=== PATIENT | female | born 1955 | race Hispanic/Latino ===

== ENCOUNTER → 2017-03-29 | Outpatient (CLI) | payer OTHER ==
[~2017-03-29] MED LIST: ALLERGY PILL PO; CATHETER FLUSH 10 ML SYR IV PRN; GUAI100S PO; IOHEXOL 350 MG/ML 100 ML (OMNIPAQUE 350) VIAL IV ONE; NS 100 ML (IVPB) BAG IV ONE; PRED20TA PO
--- NOTE | 2017-03-29 12:53 | Diagnostic Imaging Report ---
PROCEDURE: CT angiography of the head and CT angiography of the neck with and without contrast. TECHNIQUE: Contiguous noncontrast images were obtained from the skull base through the vertex. After intravenous contrast administration, helical CT angiography of the neck was performed. Source data was reformatted into multiple MIP projections. Delayed post contrast acquisition was also obtained. INDICATION: During workup for throbbing right-sided temporal head pain, a pre-and postcontrast enhanced routine head CT revealed an abnormal area of somewhat saccular hyperenhancement near the supraclinoid right ICA. This study is performed as further evaluation. FINDINGS: CT angio neck: The aortic arch in the branching pattern of the great vessels was normal. The bilateral cervical vertebral arteries are codominant and widely patent and nonfocal. The bilateral common and internal and major external carotid arterial branches in the neck appeared normal. CT angiography head: This examination confirms suspicions raised on earlier routine postcontrast enhanced head CT. Oriented inferolaterally, off the takeoff of the posterior communicating artery, is an aneurysm measuring long axis roughly of about 4 mm and maximal transverse dimension of 3.1 mm. No obvious intra-aneurysmal luminal thrombus was found. We again note no findings of subarachnoid or other intracranial blood products on nonenhanced head CT. The right posterior cerebral artery is of origin fed by the PCOM, the left LEAF SIZE PICKER is unremarkable. Both LEAF SIZE PICKER arterial segments appeared well opacified and nonfocal bilaterally. The right A1 segment is hypoplastic. The ACOM visualized, the bilateral anterior cerebral arteries appeared unremarkable. The left A1 segment is dominant. The bilateral MCA segments appeared unremarkable. There was no additional aneurysm identified. No intraluminal thrombus or a large vessel occlusion. IMPRESSION: CT angio neck: Negative. CT angio head: Exam confirms suspicions raised at earlier head CT. 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 We note that the right LEAF SIZE PICKER is of origin off the PCOM. No additional aneurysms could be identified at this study. Catheter angiographic study of the aneurysm suggested for treatment planning. At the time of this dictation, I have spoken with the nurse in the ordering physician's clinic and relayed pertinent results of this exam. Dictated by: Dictated on workstation # [id number]
== END ==
LOC: RAD 10:57
PROVIDERS: ATTEND Nurse Practitioner Family
DX: I67.1 Cerebral aneurysm, nonruptured (principal)
CPT/HCPCS: 70496; 70498

== ENCOUNTER → 2017-03-29 | Outpatient (CLI) | payer OTHER ==
--- NOTE | 2017-03-29 10:12 | Diagnostic Imaging Report ---
CLINICAL INDICATION: Patient with throbbing headache on right side. EXAM: Axial CT scan of brain performed without and with 80 cc Omnipaque 350 IV contrast. COMPARISON: None. FINDINGS: There is an exophytic appearing roughly 3 mm wide vascular prominence seen near the region of the supraclinoid right ICA. This may represent a tortuous vessel versus aneurysm. Otherwise, the remainder of the visualized portion of [place] shows no gross abnormality. Dural venous sinuses show no gross abnormalities visualized. There is no evidence of acute cerebral infarct, intracranial hemorrhage, or gross mass effect. There is focal and patchy areas of low-attenuation white matter changes seen throughout both cerebral hemispheres, likely representing chronic small vessel ischemic disease. There is normal sifuentes-white matter distinction. The brain parenchymal volume appears appropriate for patient's age. There is no significant midline shift or herniation. There is no evidence of hydrocephalus. The basal cisterns are unremarkable. The skull, extracranial soft tissue, and orbits are unremarkable. The paranasal sinuses are unremarkable. IMPRESSION: 1: There is a 3 mm wide area of vascular prominence in the region of the supraclinoid right ICA which appears exophytic. This may represent a tortuous vessel versus an aneurysm. CT angiogram the [place] and neck is suggested for further evaluation. 2: Otherwise, unremarkable CT scan of brain for age. Results of this report discussed with Jolanta, nurse for Anita ROMERO, via the telephone number [phone] on 03/29/2017 at 1000 hours. Dictated by: Dictated on workstation # [id number]
== END ==
LOC: RAD 08:58
PROVIDERS: ATTEND Nurse Practitioner Family
DX: R90.89 Other abnormal findings on diagnostic imaging of central nervous system (principal); R51 Headache
CPT/HCPCS: 70470

== ENCOUNTER 2017-08-19 16:28 | Emergency (ER) | payer SELFPAY ==
[~2017-08-19] VITALS: Ht 154.9 cm; Wt 83.9 kg
[~2017-08-19 16:28] MED LIST changes: -CATHETER FLUSH 10 ML SYR IV PRN; -IOHEXOL 350 MG/ML 100 ML (OMNIPAQUE 350) VIAL IV ONE; -NS 100 ML (IVPB) BAG IV ONE
--- OUTSIDE RECORDS SUMMARY | 2017-08-19 16:33 | XMS REPORT ---
Author Author DAMARIS CARRERA [facility] Address [address] [place] [address] Care Team Providers Care Chemical Plant Operator Name Role Phone DAMARIS CARRERA Unavailable PROBLEMS Type Condition ICD9-CM Code PMR24-JP Code Onset Dates Condition Status SNOMED Code Problem Prediabetes R73.03 Active 554284401 Problem History of hypothyroidism Z86.39 Active 972649469 Problem Seasonal allergic rhinitis due to pollen J30.1 Active 96700949 ALLERGIES Substance Reaction Event Type Date Status Tylenol Unknown Drug Allergy Jul, Active Levothyroxine Sodium Unknown Drug Allergy Jul, Active Aspirin Unknown Drug Allergy Jul, Active SOCIAL HISTORY Never Assessed PLAN OF CARE Activity Details Follow Up 2-3 weeks Reason:lab review VITAL SIGNS Height 61 in 2016-08-02 Weight 178 lbs 2016-08-02 Temperature 98.5 degrees Fahrenheit 2016-08-02 Heart Rate 82 bpm 2016-08-02 Respiratory Rate 18 2016-08-02 BMI 33.63 kg/m2 2016-08-02 Blood pressure systolic 110 mmHg 2016-08-02 Blood pressure diastolic 70 mmHg 2016-08-02 MEDICATIONS Medication Instructions Dosage Frequency Start Date End Date Duration Status Cetirizine HCl 10 MG Orally Once a day 1 tablet 24h Active Meclizine HCl 25 MG Orally twice a day prn 1 tablet as needed Jul, 14 days Active RESULTS Name Result Date Reference Range A1C (IN HOUSE) 2016-08-02 A1C IN HOUSE 5.8 4.3 - 5.6 % Previous A1c N/A Lot [id number] Exp date PROCEDURES Procedure Date Ordered Result Body Site GLYCATED HEMOGLOBIN TEST Aug 02, 2016 IMMUNIZATIONS No Known Immunizations MEDICAL (GENERAL) HISTORY Type Description Date Medical History hypothyroidism Medical History asthma Surgical History tubal Surgical History tonsillectomy Surgical History cholecystectom Surgical History section x3 Hospitalization History surgeries Hospitalization History ER for difficulty breathing
--- OUTSIDE RECORDS SUMMARY | 2017-08-19 16:34 | XMS REPORT ---
Author YUE Ahmadi [facility] eClinicalWorks Address Unknown Phone Unavailable Care Team Providers Care Substance Abuse Clinician Name Role Phone YUE CARSON CP Unavailable Allergies, Adverse Reactions, Alerts Substance Reaction Event Type Levothyroxine 25 Mcg Tablet Info Not Available Non Drug Allergy Problems Problem Type Condition Code Onset Dates Condition Status Problem Unspecified breast screening V76.10 Active Assessment Upper respiratory infection J06.9 Active Problem Special screening examination, human papillomavirus [HPV] V73.81 Active Assessment Cold J00 Active Problem Screening for malignant neoplasm of the cervix V76.2 Active Problem Full incontinence of feces 787.60 Active Problem 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 Problem Unspecified myalgia and myositis 729.1 Active Problem Encounter for long-term (current) use of other medications V58.69 Active Problem Cough 786.2 Active Problem Lumbago 724.2 Active Problem Other malaise and fatigue 780.79 Active Problem Unspecified hypothyroidism 244.9 Active Problem Abdominal pain, unspecified site 789.00 Active Problem Routine general medical examination at health care facility V70.0 Active Problem Unspecified urinary incontinence 788.30 Active Problem Abnormal weight gain 783.1 Active Problem Contact with or exposure to venereal diseases V01.6 Active Problem Hematuria, unspecified 599.70 Active Problem Nausea with vomiting 787.01 Active Problem Diaphragmatic hernia without mention of obstruction or gangrene 553.3 Active Problem Postmenopausal atrophic vaginitis 627.3 Active Problem Routine gynecological examination V72.31 Active Problem Acute sinusitis, unspecified 461.9 Active Problem Special screening for malignant neoplasms, colon V76.51 Active Medications Medication Code System Code Instructions Start Date End Date Status Dosage ZyrTEC NDC 0 10 mg Jun 02, 2014 take 1 tablet (10 mg) by oral route once daily conjugated estrogens NDC 0 0.625 mg/gram Mar 31, 2014 insert 0.5 gram by vaginal route twice weekly Multivitamin NDC 10950-07636 Mar 30, 2014 by oral route Procedures Procedure Coding System Code Date Office Visit, Est Pt., Level 2 CPT-4 84899 Mar 28, 2015 Vital Signs Date/Time: Mar 28, 2015 Temperature 98.4 F Weight 188.5 lbs Height 61 in BMI 35.61 Index Blood Pressure Diastolic 60 mmHg Blood Pressure Systolic 140 mmHg Cardiac Monitoring Heart Rate 70 bpm Results No Known Results Summary Purpose eClinicalWorks Submission
--- OUTSIDE RECORDS SUMMARY | 2017-08-19 16:34 | XMS REPORT ---
Author Author HUEY AVILA Organization [facility] Address [address] [place] [address] Care Team Providers Care Sponge Diver Name Role Phone HUEY AVILA Unavailable PROBLEMS Type Condition ICD9-CM Code [id number] Code Onset Dates Condition Status SNOMED Code Problem Prediabetes R73.03 Active 647406588 Problem History of hypothyroidism Z86.39 Active 373002637 Problem Seasonal allergic rhinitis due to pollen J30.1 Active 33667351 ALLERGIES Substance Reaction Event Type Date Status Tylenol Unknown Drug Allergy Jul, Active Aspirin Unknown Drug Allergy Jul, Active Levothyroxine 25 Mcg Tablet Unknown Non Drug Allergy Jul, Active SOCIAL HISTORY Never Assessed PLAN OF CARE Activity Details Follow Up prn Reason: VITAL SIGNS Height 61 in 2016-08-01 Weight 178.0 lbs 2016-08-01 Temperature 98.4 degrees Fahrenheit 2016-08-01 Heart Rate 60 bpm 2016-08-01 Respiratory Rate 20 2016-08-01 BMI 33.63 kg/m2 2016-08-01 Blood pressure systolic 110 mmHg 2016-08-01 Blood pressure diastolic 70 mmHg 2016-08-01 MEDICATIONS Medication Instructions Dosage Frequency Start Date End Date Duration Status Cetirizine HCl 10 MG Orally Once a day 1 tablet 24h Active RESULTS No Results PROCEDURES No Known procedures IMMUNIZATIONS No Known Immunizations MEDICAL (GENERAL) HISTORY Type Description Date Medical History hypothyroidism Medical History asthma Surgical History tubal Surgical History tonsillectomy Surgical History cholecystectom Surgical History section x3 Hospitalization History surgeries Hospitalization History ER for difficulty breathing
--- OUTSIDE RECORDS SUMMARY | 2017-08-19 16:34 | XMS REPORT ---
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 Problem Unspecified myalgia and myositis 729.1 Active Problem Cough 786.2 Active Problem Encounter for long-term (current) use of other medications V58.69 Active Problem Lumbago 724.2 Active Problem Unspecified hypothyroidism 244.9 Active Problem Other malaise and fatigue 780.79 Active Problem Abdominal pain, unspecified site 789.00 [...] Problem Acute sinusitis, unspecified 461.9 Active Problem Unspecified breast screening V76.10 Active Problem Special screening for malignant neoplasms, colon V76.51 Active Problem Special screening examination, human papillomavirus [HPV] V73.81 Active Medications No Known Medications Results No Known Results Summary Purpose eClinicalWorks Submission
--- OUTSIDE RECORDS SUMMARY | 2017-08-19 16:34 | XMS REPORT | Continuity of Care Document ---
Author Author [facility] Organization [facility] Address Unknown Phone Unavailable Allergies Active Description Code Type Severity Reaction Onset Reported/Identified Relationship to Patient Clinical Status Yes levothyroxine 25 mcg tablet Drug Allergy N/A N/A 05/07/2014 Yes No Allergy Information Available [id number] Drug Allergy Unknown N/A 2013 Yes No Known Drug Allergies [id number] Drug Allergy Unknown N/A 09/25/2014 Medications There is no data. Problems Date Dx Coded Attending Type Code Diagnosis Diagnosed By 03/30/2014 BO GARRETT APRN 783.1 ABNORMAL WEIGHT GAIN 03/30/2014 BO GARRETT APRN 787.60 FULL INCONTINENCE OF FECES 03/30/2014 BO GARRETT APRN 788.30 URINARY INCONTINENCE UNSPECIFIED 03/30/2014 BO GARRETT APRN 789.00 ABDOMINAL PAIN UNSPECIFIED SITE 03/30/2014 BO GARRETT APRN V70.0 ROUTINE GENERAL MEDICAL EXAMINATION AT A HEALTH CARE FACILITY 03/30/2014 PEYTON ZEE DOA K 783.1 ABNORMAL WEIGHT GAIN 03/30/2014 PEYTON ZEE DOA K 787.60 FULL INCONTINENCE OF FECES 03/30/2014 PEYTON ZEE DOA K 788.30 URINARY INCONTINENCE UNSPECIFIED 03/30/2014 YAYO MENEZES DENIS K 789.00 ABDOMINAL PAIN UNSPECIFIED SITE 03/30/2014 ZEE DO DENIS K V70.0 ROUTINE GENERAL MEDICAL EXAMINATION AT A HEALTH CARE FACILITY 03/30/2014 ZEE DO DENIS K 783.1 ABNORMAL WEIGHT GAIN 03/30/2014 ZEE DO DENIS K 787.60 FULL INCONTINENCE OF FECES 03/30/2014 ZEE DO DENIS K 788.30 URINARY INCONTINENCE UNSPECIFIED 03/30/2014 ZEE DO DENIS K 789.00 ABDOMINAL PAIN UNSPECIFIED SITE 03/30/2014 ZEE DO DENIS K V70.0 ROUTINE GENERAL MEDICAL EXAMINATION AT A HEALTH CARE FACILITY 03/30/2014 BETO VU, BRAD R 783.1 ABNORMAL WEIGHT GAIN 03/30/2014 BETO LEAD CASTER HELPER, BRAD R 787.60 FULL INCONTINENCE OF FECES 03/30/2014 BETO KLEINN, BRAD R 788.30 URINARY INCONTINENCE UNSPECIFIED 03/30/2014 BETO VU, BRAD R 789.00 ABDOMINAL PAIN UNSPECIFIED SITE 03/30/2014 HAIM PÉREZ APRNRICIA R V70.0 ROUTINE GENERAL MEDICAL EXAMINATION AT A HEALTH CARE FACILITY 03/30/2014 CESAR VU SERGEI R 783.1 ABNORMAL WEIGHT GAIN 03/30/2014 CESAR LEAD CASTER HELPER, SERGEI R 787.60 FULL INCONTINENCE OF FECES 03/30/2014 CESAR VU SERGEI R 788.30 URINARY INCONTINENCE UNSPECIFIED 03/30/2014 CESAR KLEINN, SERGEI R 789.00 ABDOMINAL PAIN UNSPECIFIED SITE 03/30/2014 CESAR VU, SERGEI R V70.0 ROUTINE GENERAL MEDICAL EXAMINATION AT A HEALTH CARE FACILITY 03/30/2014 ZEE DO DENIS K 783.1 ABNORMAL WEIGHT GAIN 03/30/2014 ZEE DO DENIS K 787.60 FULL INCONTINENCE OF FECES 03/30/2014 ZEE DO, DENIS K 788.30 URINARY INCONTINENCE UNSPECIFIED 03/30/2014 ZEE DO, DENIS K 789.00 ABDOMINAL PAIN UNSPECIFIED SITE 03/30/2014 ZEE DO, DENIS K V70.0 ROUTINE GENERAL MEDICAL EXAMINATION AT A HEALTH CARE FACILITY 03/30/2014 CYRUS LINDO APRN S 783.1 ABNORMAL WEIGHT GAIN 03/30/2014 CYRUS LINDO APRN S 787.60 FULL INCONTINENCE OF FECES 03/30/2014 CYRUS LINDO APRN S 788.30 URINARY INCONTINENCE UNSPECIFIED 03/30/2014 CYRUS LINDO APRN S 789.00 ABDOMINAL PAIN UNSPECIFIED SITE 03/30/2014 CYRUS LINDO APRN S V70.0 ROUTINE GENERAL MEDICAL EXAMINATION AT A HEALTH CARE FACILITY 03/31/2014 BO GARRETT APRN 627.3 POSTMENOPAUSAL ATROPHIC VAGINITIS 03/31/2014 BO GARRETT APRN V72.31 KNIFEMAN EXAM, ROUTINE 03/31/2014 TAMI LEAD CASTER HELPER, BO A V73.81 HPV SCREENING 03/31/2014 TAMIMERLIN Santiago APRNIDI A V76.10 BREAST CANCER SCREENING 03/31/2014 TAMIBO Santiago APRN A V76.2 CERVICAL CANCER SCREENING (PAP SMEAR) 03/31/2014 TAMIMERLIN Santiago APRNIDI A V76.51 COLON CANCER SCREENING 03/31/2014 DENIS ZEE DO K 627.3 POSTMENOPAUSAL ATROPHIC VAGINITIS 03/31/2014 PEYTON ZEE DOA K V72.31 KNIFEMAN EXAM, ROUTINE 03/31/2014 PEYTON ZEE DOA K V73.81 HPV SCREENING 03/31/2014 YAYO MENEZES DENIS K V76.10 BREAST CANCER SCREENING 03/31/2014 PEYTON ZEE DOA K V76.2 CERVICAL CANCER SCREENING (PAP SMEAR) 03/31/2014 PEYTON ZEE DOA K V76.51 COLON CANCER SCREENING 03/31/2014 DENIS ZEE DO K 627.3 POSTMENOPAUSAL ATROPHIC VAGINITIS 03/31/2014 PEYTON ZEE DOA K V72.31 KNIFEMAN EXAM, ROUTINE 03/31/2014 PEYTON ZEE DOA K V73.81 HPV SCREENING 03/31/2014 PEYTON ZEE DOA K V76.10 BREAST CANCER SCREENING 03/31/2014 PEYTON ZEE DOA K V76.2 CERVICAL CANCER SCREENING (PAP SMEAR) 03/31/2014 PEYTON ZEE DOA K V76.51 COLON CANCER SCREENING 03/31/2014 BRAD PÉREZ APRN R 627.3 POSTMENOPAUSAL ATROPHIC VAGINITIS 03/31/2014 ARPITA PÉREZ APRNIA R V72.31 KNIFEMAN EXAM, ROUTINE 03/31/2014 ARPITA PÉREZ APRNIA R V73.81 HPV SCREENING 03/31/2014 HAIM PÉREZ APRNRICIA R V76.10 BREAST CANCER SCREENING 03/31/2014 ARPITA PÉREZ APRNIA R V76.2 CERVICAL CANCER SCREENING (PAP SMEAR) 03/31/2014 ARPITA PÉREZ APRNIA R V76.51 COLON CANCER SCREENING 03/31/2014 SERGEI GUERRERO APRN R 627.3 POSTMENOPAUSAL ATROPHIC VAGINITIS 03/31/2014 BIN GUERRERO APRNINA R V72.31 KNIFEMAN EXAM, ROUTINE 03/31/2014 SERGEI GUERRERO APRN R V73.81 HPV SCREENING 03/31/2014 BIN GUERRERO APRNINA R V76.10 BREAST CANCER SCREENING 03/31/2014 BIN GUERRERO APRNINA R V76.2 CERVICAL CANCER SCREENING (PAP SMEAR) 03/31/2014 SERGEI GUERRERO APRN R V76.51 COLON CANCER SCREENING 03/31/2014 YAYO MENEZES EDNIS K 627.3 POSTMENOPAUSAL ATROPHIC VAGINITIS 03/31/2014 ZEE DO DENIS K V72.31 KNIFEMAN EXAM, ROUTINE 03/31/2014 ZEE DO DENIS K V73.81 HPV SCREENING 03/31/2014 ZEE DO DENIS K V76.10 BREAST CANCER SCREENING 03/31/2014 ZEE DO, DENIS K V76.2 CERVICAL CANCER SCREENING (PAP SMEAR) 03/31/2014 YAYO MENEZES DENIS K V76.51 COLON CANCER SCREENING 03/31/2014 CYRUS LINDO APRN S 627.3 POSTMENOPAUSAL ATROPHIC VAGINITIS 03/31/2014 CYRUS LINDO APRN S V72.31 KNIFEMAN EXAM, ROUTINE 03/31/2014 CYRUS LINDO APRN S V73.81 HPV SCREENING 03/31/2014 ROCIO LINDO APRNNDA S V76.10 BREAST CANCER SCREENING 03/31/2014 ROCIO LINDO APRNNDA S V76.2 CERVICAL CANCER SCREENING (PAP SMEAR) 03/31/2014 ROCIO LINDO APRNNDA S V76.51 COLON CANCER SCREENING 04/20/2014 YAYO DO DENIS K 244.9 UNSPECIFIED ACQUIRED HYPOTHYROIDISM 04/20/2014 ZEE DO DENIS K 724.2 LUMBAGO 04/20/2014 ZEE DO DENIS K 244.9 UNSPECIFIED ACQUIRED HYPOTHYROIDISM 04/20/2014 ZEE DO DENIS K 724.2 LUMBAGO 04/20/2014 ARPITA PÉREZ APRNIA R 244.9 UNSPECIFIED ACQUIRED HYPOTHYROIDISM 04/20/2014 ARPITA PÉREZ APRNIA R 724.2 LUMBAGO 04/20/2014 SERGEI GUERRERO APRN R 244.9 UNSPECIFIED ACQUIRED HYPOTHYROIDISM 04/20/2014 BIN GUERRERO APRNINA R 724.2 LUMBAGO 04/20/2014 ZEE DO DENIS K 244.9 UNSPECIFIED ACQUIRED HYPOTHYROIDISM 04/20/2014 ZEE DO DENIS K 724.2 LUMBAGO 04/20/2014 GUICHO LEAD CASTER HELPER, CYRUS S 244.9 UNSPECIFIED ACQUIRED HYPOTHYROIDISM 04/20/2014 GUICHO VU, CYRUS S 724.2 LUMBAGO 05/07/2014 ZEE DO, DENIS K 599.70 HEMATURIA UNSPECIFIED 05/07/2014 ZEE DO, DENIS K 787.01 NAUSEA WITH VOMITING 05/07/2014 ZEE DO, DENIS K V01.6 EXPOSURE TO VENEREAL DISEASES 05/07/2014 HAIM PÉREZ APRNRICIA R 553.3 HIATAL HERNIA 05/07/2014 HAIM PÉERZ APRNRICIA R 599.70 HEMATURIA UNSPECIFIED 05/07/2014 BETO KLEINN BRAD R 787.01 NAUSEA WITH VOMITING 05/07/2014 HAIM PÉREZ APRNRICIA R V01.6 EXPOSURE TO VENEREAL DISEASES 05/07/2014 CESAR VU SERGEI R 553.3 HIATAL HERNIA 05/07/2014 CESAR VU SERGEI R 599.70 HEMATURIA UNSPECIFIED 05/07/2014 CESAR VU SERGEI R 787.01 NAUSEA WITH VOMITING 05/07/2014 CESAR VU SERGEI R V01.6 EXPOSURE TO VENEREAL DISEASES 05/07/2014 ZEE DO, DENIS K 553.3 HIATAL HERNIA 05/07/2014 ZEE DO, DENIS K 599.70 HEMATURIA UNSPECIFIED 05/07/2014 ZEE DO, DENIS K 787.01 NAUSEA WITH VOMITING 05/07/2014 ZEE DO, DENIS K V01.6 EXPOSURE TO VENEREAL DISEASES 05/07/2014 GUICHO VU CYRUS S 553.3 HIATAL HERNIA 05/07/2014 ROCIO LINDO APRNNDA S 599.70 HEMATURIA UNSPECIFIED 05/07/2014 GUICHO VU CYRUS S 787.01 NAUSEA WITH VOMITING 05/07/2014 GUICHO VU CYRUS S V01.6 EXPOSURE TO VENEREAL DISEASES 05/14/2014 BO GARRETT APRN Ot V76.12 05/17/2014 BO GARRETT LEAD CASTER HELPER Ot V76.12 06/02/2014 ARPITA PÉREZ APRNIA R 461.9 SINUSITIS ACUTE 06/02/2014 BIN GUERRERO APRNINA R 461.9 SINUSITIS ACUTE 06/02/2014 ZEE DO, DENIS K 461.9 SINUSITIS ACUTE 06/02/2014 GUICHO KLEINNROCIOCYRUS S 461.9 SINUSITIS ACUTE 06/18/2014 SERGEI GUERRERO APRN R 786.2 COUGH 06/18/2014 YAYO MENEZES, DENIS K 786.2 COUGH 06/18/2014 GUICHO KLEINNROCIOCYRUS S 786.2 COUGH 06/21/2014 BO GARRETT LEAD CASTER HELPER Ot V76.12 06/21/2014 SOPHIE ANGEL, HAYLEY M Ot 787.01 06/21/2014 SOPHIE PA, HAYLEY M Ot 789.00 06/29/2014 ZEE DO, DENIS K 729.1 MYALGIA AND MYOSITIS UNSPECIFIED 06/29/2014 ZEE DO, DENIS K 780.79 OTHER MALAISE AND FATIGUE 06/29/2014 ZEE DO, DENIS K V58.69 HIGH RISK MEDICATION 06/29/2014 GUICHO KLEINNROCIOCYRUS S 729.1 MYALGIA AND MYOSITIS UNSPECIFIED 06/29/2014 SARAH LINDO APRNA S 780.79 OTHER MALAISE AND FATIGUE 06/29/2014 GUICHO LEAD CASTER HELPER CYRUS S V58.69 HIGH RISK MEDICATION 07/01/2014 ZEE DO, DENIS K 376.31 CONSTANT EXOPHTHALMOS 07/01/2014 ROCIO LINDO APRNNDA S 376.31 CONSTANT EXOPHTHALMOS 07/09/2014 SOPHIE ANGEL, HAYLEY M Ot 787.01 07/09/2014 SOPHIE ANGEL, HAYLEY M Ot 789.00 08/10/2014 SOPHIE PA, HAYLEY M Ot 244.9 08/10/2014 SOPHIE PA, HAYLEY M Ot 376.31 08/10/2014 SOPHIE PA, HAYLEY M Ot 780.79 09/25/2014 BO GARRETT LEAD CASTER HELPER Ot V76.12 09/25/2014 SOPHIE PA, HAYLEY M Ot 787.01 09/25/2014 SOPHIE PA, HAYLEY M Ot 789.00 09/25/2014 SOPHIE PA, HAYLEY M Ot 244.9 09/25/2014 SOPHIE PA, HAYLEY M Ot 376.31 09/25/2014 SOPHIE ANGEL, HAYLEY M Ot 780.79 09/25/2014 LIENE HORTON Ot 493.22 CHRONIC OBSTRUCTIVE ASTHMA, W (ACUTE) EX 09/25/2014 ILENE HORTON Ot 786.05 SHORTNESS OF BREATH 09/25/2014 ILENE HORTON Ot V15.82 HISTORY OF TOBACCO USE 10/07/2014 GUICHO KLEINNCYRUS S 477.0 ALLERGIC RHINITIS DUE TO POLLEN 10/07/2014 GUICHO LEAD CASTER HELPER, CYRUS S 493.90 ASTHMA UNSPECIFIED 03/29/2017 BO GARRETT LEAD CASTER HELPER Ot V76.12 OTH SCREEN MAMMO-MALIGN NEOPLASM OF MEERA 03/29/2017 HAYLEY COSTA Ot 787.01 NAUSEA WITH VOMITING 03/29/2017 HAYLEY COSTA M Ot 789.00 ABDOMINAL PAIN, UNSPECIFIED SITE 03/29/2017 HAYLEY COSTA M Ot 244.9 HYPOTHYROIDISM NOS 03/29/2017 HAYLEY COSTA M Ot 376.31 CONSTANT EXOPHTHALMOS 03/29/2017 HAYLEY COSTA M Ot 780.79 OTH MALAISE FATIGUE 03/29/2017 BO GARRETT LEAD CASTER HELPER Ot V76.12 OTH SCREEN MAMMO-MALIGN NEOPLASM OF MEERA 03/29/2017 HAYLEY COSTA Ot 787.01 NAUSEA WITH VOMITING 03/29/2017 HAYLEY COSTA M Ot 789.00 ABDOMINAL PAIN, UNSPECIFIED SITE 03/29/2017 HAYLEY COSTA M Ot 244.9 HYPOTHYROIDISM NOS 03/29/2017 HAYLEY COSTA M Ot 376.31 CONSTANT EXOPHTHALMOS 03/29/2017 HAYLEY COSTA M Ot 780.79 OTH MALAISE FATIGUE 04/24/2017 DAMARIS CARRERA SMASH FIXER Ot R51 HEADACHE 04/24/2017 DAMARIS CARRERA SMASH FIXER Ot R90.89 OTH ABNORMAL FINDINGS ON DIAGNOSTIC IMAG 04/24/2017 DAMARIS CARRERA SMASH FIXER Ot I67.1 CEREBRAL ANEURYSM, NONRUPTURED Procedures Code Description [place] [address] MAMMOGRAM, SCREENING 03/31/2014 87221 ROUTINE VENIPUNCTURE 03/31/2014 88988 PAP SMEAR 03/31/2014 LIZ VAZQUEZ 03/31/2014 Q0091 PAP SMEAR OBTAIN SMEAR 03/31/2014 27276 CBC 03/31/2014 35293 HEMOCCULT 03/31/2014 7418113 GFR CALC (RESULT ONLY) 03/31/2014 27570 CMP 03/31/2014 14860 LIPID PANEL 03/31/2014 02383 TSH 03/31/2014 84510 ROUTINE VENIPUNCTURE 05/07/2014 18206 UA W/ CULTURE IF INDICATED 05/07/[address] ABDOMEN & PELVIS W/ & W/ O CONTRAST 05/07/2014 31472 OXIMETRY 06/02/2014 77904 ROUTINE VENIPUNCTURE 06/18/2014 26568 CBC 06/18/2014 47226 MYCOPLASMA ANTIBODY 06/20/2014 97969 ROUTINE VENIPUNCTURE 06/29/2014 86283 US THYROID ULTRASOUND 06/29/2014 65201 UA W/MICROSCOPY 06/29/2014 35232 TSH 06/29/2014 UROLOGY BERNADETTE STEPHENS 06/29/2014 18532 UA W/ CULTURE IF INDICATED 06/29/2014 07818 CBC 06/29/2014 1642754 GFR CALC (RESULT ONLY) 06/29/2014 58265 CMP 06/29/2014 14022 OXIMETRY 10/12/2014 Results There is no data. Encounters ACCT No. Visit Date/Time Discharge Status Pt. Type Provider Facility Loc./Unit Complaint [id number] 03/29/2017 10:57:00 03/29/2017 23:59:59 CLS Outpatient DAMARIS CARRERA [facility] RAD ABNORMAL HEAD CT R93.0 [id number] 03/29/2017 08:58:00 03/29/2017 23:59:59 CLS Outpatient DAMARIS CARRERA SMASH FIXER [facility] RAD RT TEMPORAl HEADACHE [id number] 09/25/2014 11:12:00 09/25/2014 16:37:00 DIS Emergency ILENE HORTON [facility] ER SOA [id number] 07/06/2014 14:32:00 07/06/2014 23:59:59 CLS Outpatient HAYLEY COSTA [facility] RAD NEW ONSET HYPOTHYROIDISM, FATIGUE [id number] 05/17/2014 11:02:00 05/17/2014 23:59:59 CLS Outpatient HAYLEY COSTA [facility] RAD ABDOMINAL PAIN,NAUSEA/ VOMITING [id number] 04/02/2014 11:14:00 04/02/2014 23:59:59 CLS Outpatient BO GARRETT APRN [facility] RAD SCREENING [id number] 10/07/2014 16:56:00 10/07/2014 23:59:59 CLS Outpatient CYRUS LINDO APRN [id number] 06/29/2014 13:36:00 06/29/2014 23:59:59 CLS Outpatient DENIS ZEE DO [id number] 06/18/2014 13:34:00 06/18/2014 23:59:59 CLS Outpatient SERGEI GUERRERO APRN [id number] 06/02/2014 14:33:00 06/02/2014 23:59:59 CLS Outpatient BRAD PÉREZ APRN [id number] 05/07/2014 09:34:00 05/07/2014 23:59:59 CLS Outpatient DENIS ZEE DO [id number] 04/20/2014 10:50:00 04/20/2014 23:59:59 CLS Outpatient DENIS ZEE DO [id number] 03/31/2014 09:14:00 03/31/2014 23:59:59 CLS Outpatient BO GARRETT APRN
--- OUTSIDE RECORDS SUMMARY | 2017-08-19 16:34 | XMS REPORT ---
Author Author DAMARIS CARRERA [facility] Address [address] [place] [address] Care Team Providers Care Strength And Conditioning Coach Name Role Phone DAMARIS CARRERA Unavailable PROBLEMS Type Condition ICD9-CM Code [id number] Code Onset Dates Condition Status SNOMED Code Problem Prediabetes R73.03 Active 762489643 Problem History of hypothyroidism Z86.39 Active 254349320 Problem Seasonal allergic rhinitis due to pollen J30.1 Active 54117240 ALLERGIES Substance Reaction Event Type Date Status Tylenol Unknown Drug Allergy Aug, Active Levothyroxine Sodium Unknown Drug Allergy Aug, Active Aspirin Unknown Drug Allergy Aug, Active SOCIAL HISTORY Never Assessed PLAN OF CARE Activity Details Follow Up 3 Months Reason:pre-diabetes VITAL SIGNS Height 61 in 2016-08-23 Weight 177.9 lbs 2016-08-23 Temperature 98.7 degrees Fahrenheit 2016-08-23 Heart Rate 60 bpm 2016-08-23 Respiratory Rate 18 2016-08-23 BMI 33.61 kg/m2 2016-08-23 Blood pressure systolic 110 mmHg 2016-08-23 Blood pressure diastolic 72 mmHg 2016-08-23 MEDICATIONS Medication Instructions Dosage Frequency Start Date End Date Duration Status Cetirizine HCl 10 MG Orally Once a day 1 tablet 24h Active Multivitamin - Active Keflex 500 mg Orally 3 times a day 1 capsule 8h Aug, Aug, 10 day(s) Active RESULTS No Results PROCEDURES No Known procedures IMMUNIZATIONS No Known Immunizations MEDICAL (GENERAL) HISTORY Type Description Date Medical History hypothyroidism Medical History asthma Surgical History tubal Surgical History tonsillectomy Surgical History cholecystectom Surgical History section x3 Hospitalization History surgeries Hospitalization History ER for difficulty breathing
--- OUTSIDE RECORDS SUMMARY | 2017-08-19 16:34 | XMS REPORT ---
Author Author YUE CARSON [facility] [employer] Address Unknown Phone Unavailable Care Team Providers Care Swabber Name Role Phone YUE CARSON CP Unavailable Allergies, Adverse Reactions, Alerts Substance Reaction Event Type Tylenol Info Not Available Drug Allergy Aspirin Info Not Available Drug Allergy Levothyroxine 25 Mcg Tablet Info Not Available Non Drug Allergy Problems Problem Type Condition Code Onset Dates Condition Status Assessment Bronchitis J40 Active Problem Unspecified hypothyroidism 244.9 Active Medications Medication Code System Code Instructions Start Date End Date Status Dosage Tussin [facility] [address] 100 MG/5ML Orally every 4 hrs 10 ml as needed Cetirizine HCl [facility] [address]-28 10 MG Orally Once a day 1 tablet PredniSONE [facility] [address]-10 20 mg Orally Once a day, pc January 06, 2016 2 Procedures Procedure Coding System Code Date Office Visit, Est Pt., Level 2 CPT-4 46486 January 06, 2016 MEASURE BLOOD OXYGEN LEVEL CPT-4 24716 January 06, 2016 Vital Signs Date/Time: January 06, 2016 Cardiac Monitoring Heart Rate 80 bpm Weight 174.9 lbs Height 61 in Blood Pressure Diastolic 72 mmHg Blood Pressure Systolic 144 mmHg Results No Known Results Summary Purpose eClinicalWorks Submission
--- OUTSIDE RECORDS SUMMARY | 2017-08-19 16:34 | XMS REPORT ---
Author Author DAMARIS CARRERA [facility] Address [address] [place] [address] Care Team Providers Care Social Science Teacher Name Role Phone DAMARIS CARRERA Unavailable PROBLEMS Type Condition ICD9-CM Code ILL32-AL Code Onset Dates Condition Status SNOMED Code Problem Prediabetes R73.03 Active 326470770 Problem History of hypothyroidism Z86.39 Active 697845883 Problem Seasonal allergic rhinitis due to pollen J30.1 Active 59627487 ALLERGIES No Information SOCIAL HISTORY Never Assessed PLAN OF CARE VITAL SIGNS MEDICATIONS No Known Medications RESULTS Name Result Date Reference Range TSH 2016-08-03 TSH 4.200 0.450-4.500 CBC 2016-08-03 WBC 4.3 3.4-10.8 RBC 4.28 3.77-5.28 Hemoglobin 12.6 11.1-15.9 Hematocrit 37.6 34.0-46.6 MCV 88 79-97 MCH 29.4 26.6-33.0 MCHC 33.5 31.5-35.7 RDW 14.6 12.3-15.4 Platelets 281 150-379 Neutrophils 57 Lymphs 29 Monocytes 9 Eos 4 Basos 1 Neutrophils (Absolute) 2.5 1.4-7.0 Lymphs (Absolute) 1.2 0.7-3.1 Monocytes(Absolute) 0.4 0.1-0.9 Eos (Absolute) 0.2 0.0-0.4 Baso (Absolute) 0.0 0.0-0.2 Immature Granulocytes 0 Immature Grans (Abs) 0.0 0.0-0.1 LIPID PANEL 2016-08-03 Cholesterol, Total 190 100-199 Triglycerides 83 0-149 HDL Cholesterol 71 >39 VLDL Cholesterol Fabien 17 5-40 LDL Cholesterol Calc 102 0-99 CMP 2016-08-03 Glucose, Serum 96 65-99 BUN 13 8-27 Creatinine, Serum 0.81 0.57-1.00 eGFR If NonAfricn Am 78 >59 eGFR If Africn Am 90 >59 BUN/Creatinine Ratio 16 11-26 Sodium, Serum 139 134-144 Potassium, Serum 4.6 3.5-5.2 Chloride, Serum 100 96-106 Carbon Dioxide, Total 23 18-29 Calcium, Serum 9.1 8.7-10.3 Protein, Total, Serum 7.1 6.0-8.5 Albumin, Serum 4.4 3.6-4.8 Globulin, Total 2.7 1.5-4.5 A/G Ratio 1.6 1.1-2.5 Bilirubin, Total 0.4 0.0-1.2 Alkaline Phosphatase, S 60 39-117 AST (SGOT) 19 0-40 ALT (SGPT) 17 0-32 PROCEDURES Procedure Date Ordered Result Body Site ASSAY THYROID STIM HORMONE Aug 03, 2016 COMPLETE CBC W/AUTO DIFF WBC Aug 03, 2016 COMPREHEN METABOLIC PANEL Aug 03, 2016 LIPID PANEL Aug 03, 2016 VENIPUNCT, ROUTINE* Aug 03, 2016 IMMUNIZATIONS No Known Immunizations MEDICAL (GENERAL) HISTORY Type Description Date Medical History hypothyroidism Medical History asthma Surgical History tubal Surgical History tonsillectomy Surgical History cholecystectom Surgical History section x3 Hospitalization History surgeries Hospitalization History ER for difficulty breathing
--- NOTE | 2017-08-19 16:49 | ED Cough/URI ---
General Chief Complaint: Cough/Cold/Flu Symptoms Stated Complaint: COUGH Source: patient Exam Limitations: no limitations History of Present Illness Date Seen by Provider: Aug 19, 2017 Time Seen by Provider: 16:48 Initial Comments To ER with c/o productive cough, fever, sore throat x4 days. Timing/Duration: constant Severity/Quality: productive cough Associated Symptoms: cough, fever/chills Allergies and Home Medications Allergies Coded Allergies: No Known Drug Allergies (Unverified , 09/25/14) Home Medications Guaifenesin 100 Mg/5 Ml Btl, Unknown Dose PO Q8H PRN for CONGESTION, (Reported) Prednisone 20 Mg Tablet, 40 MG PO DAILY Prescribed by: ILENE DALLAS on 09/25/146 [Allergy Pill] , Unknown Dose PO Q4H PRN for CONGESTION, (Reported) Constitutional: see HPI, chills, fever EENTM: nose congestion, throat pain Respiratory: see HPI, cough Cardiovascular: no symptoms reported Genitourinary: no symptoms reported Musculoskeletal: no symptoms reported Skin: no symptoms reported Psychiatric/Neurological: No Symptoms Reported Past Vvigqmy-Cbhpjb-Rxicey Hx Patient Social History Recent Foreign Travel: No Contact w/Someone Who Travel: No Seasonal Allergies Seasonal Allergies: Yes Surgeries Surgeries: Adenoidectomy, Section, Gallbladder, Tonsillectomy Respiratory Respiratory Disorders: Asthma Reproductive System Hx Reproductive Disorders: No Endocrine Endocrine Disorders: Hypothyroidsim Family Medical History Significant Family History: No Pertinent Family Hx Physical Exam Vital Signs Vital Signs - First Documented 08/19/17 16:45 Temp 101.0 Pulse 89 Resp 20 B/P (MAP) 124/80 (95) Pulse Ox 96 O2 Delivery Room Air Capillary Refill : General Appearance: WD/WN, no apparent distress Eyes: Bilateral Eye Normal Inspection, Bilateral Eye PERRL, Bilateral Eye EOMI HEENT: PERRL/EOMI, normal ENT inspection Neck: non-tender, full range of motion Respiratory: no respiratory distress, no accessory muscle use, wheezing (TRELL) Cardiovascular: regular rate, rhythm, no murmur Gastrointestinal: normal bowel sounds, non tender, soft Extremities: normal range of motion, non-tender Neurologic/Psychiatric: alert, normal mood/affect, oriented x 3 Skin: normal color, warm/dry Progress/Results/Core Measures Suspected Sepsis SIRS Temperature: Pulse: Respiratory Rate: Blood Pressure / Mean: Results/Orders Micro Results Microbiology 08/19/17 Influenza Types A,B Antigen (CINDY) - Final, Complete My Orders Orders - GOMEZ BOURGEOIS APRN Influenza A And B Antigens (08/19/17 16:46) Chest Pa/Lat (2 View) (08/19/17 16:46) Ibuprofen Tablet (Motrin Tablet) (08/19/17 17:00) Albuterol/Ipra Inhalation Soln (Duoneb I (08/19/17 17:00) Svn Sm Volume Nebulizer Rt-Rfs (08/19/17 16:49) Medications Given in ED Current Medications Medications Dose Ordered Sig/Kenia Route Start Time Stop Time Status Last Admin Dose Admin Albuterol/ Ipratropium 3 ml ONCE ONCE INH 08/19/17 17:00 08/19/17 17:01 DC 08/19/17 17:07 3 ML Vital Signs/I&O Vital Sign - Last 12Hours 08/19/17 08/19/17 08/19/17 16:45 16:45 17:08 Temp 101.0 Pulse 89 Resp 20 B/P (MAP) 124/80 (95) Pulse Ox 96 96 O2 Delivery Room Air Room Air Room Air Capillary Refill : Departure Impression Impression: Primary Impression: Influenza Additional Impression: COPD exacerbation Disposition: HOME, SELF-CARE Condition: Stable Departure-Patient Inst. Decision time for Depature: 17:24 Referrals: DENIS ZEE DO (PCP) Primary Care Physician DAMARIS CARRERA (Family) Primary Care Physician Patient Instructions: Flu Add. Discharge Instructions: 1. Tylenol and Motrin for fevers and chills 2. Steroids and inhaler as directed as this flu has caused your COPD to become a bit worse 3. Use over the counter cough medicatoin 4. Follow up with your doctor either this or saturday for recheck. 5. Return to ER for any worsening All discharge instructions reviewed with patient and/or family. Voiced understanding. Scripts Albuterol Sulfate (PROAIR HFA) 1 Puff Puff 2 PUFF IH Q4H, #1 PUFF 1 PUFF = 90 MCG Prov: GOMEZ BOURGEOIS APRN 08/19/17 Prednisone (Prednisone) 20 Mg Tab 40 MG PO DAILY, #8 TAB Prov: GOMEZ BOURGEOIS APRN 08/19/17 GOMEZ BOURGEOIS APRN Aug 19, 2017 16:49
[2017-08-19] MEDS ORDERED: RT-ALBUTEROL/IPRATROPIUM 3 ML (DUONEB) VIAL INH ONE (17:00)
[2017-08-19] MEDS ORDERED: IBUPROFEN 800 MG (MOTRIN) TAB PO ONE (17:00)
--- NOTE | 2017-08-19 17:13 | Diagnostic Imaging Report ---
INDICATION: Productive cough and chills and diarrhea. PA and lateral chest obtained at 05:18 p.m. Heart and mediastinal silhouette are normal in appearance. The lungs are clear. There is no pneumothorax or pleural fluid. A large hiatal hernia is again noted. These findings are unchanged from 09/25/2014. IMPRESSION: Large hiatal hernia. No acute infiltrate, pneumothorax, or pleural fluid. No change from 09/25/2014. Dictated by: Dictated on workstation # [id number]
[2017-08-19] MEDS ORDERED: RT-ALBUINH IH (17:29)
[2017-08-19] MEDS ORDERED: PRD20T PO (17:29)
[2017-08-19 17:35] VITALS: BP 124/80
== END 2017-08-19 17:35 | disposition home or self-care (01) ==
LOC: EDUNIT# 16:28 → ER 16:30
DX: J44.1 Chronic obstructive pulmonary disease with (acute) exacerbation (principal); J11.1 Influenza due to unidentified influenza virus with other respiratory manifestations; E03.9 Hypothyroidism, unspecified; Z90.89 Acquired absence of other organs; Z87.59 Personal history of other complications of pregnancy, childbirth and the puerperium; Z79.52 Long term (current) use of systemic steroids
CPT/HCPCS: 71046; 87804; 94640

== ENCOUNTER 2022-02-04 07:37 | Emergency (ER) | payer BC ==
[~2022-02-04] VITALS: Ht 155 cm; Wt 75.7 kg
[~2022-02-04 07:37] MED LIST changes: +PRD20T PO; +RT-ALBUINH IH
--- NOTE | 2022-02-04 07:51 | ED General ---
General Chief Complaint: Overdose Stated Complaint: OVERDOSE ON LISINOPRIL Source of Information: Patient Exam Limitations: No Limitations History of Present Illness Date Seen by Provider: Feb 04, 2022 Time Seen by Provider: 07:40 Initial Comments Patient is a 66-year-old female with a history of hypertension who presents to the emergency department this morning after accidentally taking too many of her lisinopril. Patient takes 5 mg lisinopril every morning. She was sorting out her pills for her weekly pill counter. She had put 7 in her hand as well as her daily medication, she states she was not thinking and she popped all of them in her mouth when she took a sip of coffee. She took a total of 8 5 mg fermin nopril's. This is a total of 40 mg. She states this happened about 20 to 25 minutes ago. She is not having any symptoms other than extreme anxiety. Her blood pressure is in the 190s over 93 range. She has no chest pain, shortness of breath abdominal pain. No complaints of infectious symptoms. All other review of systems reviewed and negative except as stated. Timing/Duration: 1/2 Hour Associated Systoms: Other (Anxiety) Allergies and Home Medications Allergies Coded Allergies: No Known Drug Allergies (Unverified , 09/25/14) Patient Home Medication List Home Medication List Reviewed: Yes Albuterol Sulfate (Proair Hfa) 1 Puff Puff, 2 PUFF IH Q4H Prescribed by: GOMEZ BOURGEOIS on 08/19/171728 Guaifenesin (Robitussin) 100 Mg/5 Ml Btl, Unknown Dose PO Q8H PRN for CONGESTION, (Reported) Entered as Reported by: PAUL FRIEDMAN on 09/25/14 1143 Prednisone (Prednisone) 20 Mg Tablet, 40 MG PO DAILY Prescribed by: ILENE DALLAS on 09/25/14 1629 Prednisone (Prednisone) 20 Mg Tab, 40 MG PO DAILY Prescribed by: GOMEZ BOURGEOIS on 08/19/17 172 [Allergy Pill] , Unknown Dose PO Q4H PRN for CONGESTION, (Reported) Entered as Reported by: PAUL FRIEDMAN on 09/25/14 1143 Review of Systems Review of Systems Constitutional: see HPI EENTM: no symptoms reported Respiratory: no symptoms reported Cardiovascular: no symptoms reported Gastrointestinal: no symptoms reported Genitourinary: no symptoms reported Musculoskeletal: no symptoms reported Skin: no symptoms reported Psychiatric/Neurological: Anxiety All Other Systems Reviewed Negative Unless Noted: Yes Past Hhuiudw-Iegvfr-Xthfnz Hx Seasonal Allergies Seasonal Allergies: Yes Past Medical History Surgeries: Yes Adenoidectomy, Section, Gallbladder, Tonsillectomy Respiratory: Yes Asthma Cardiac: No Neurological: No Reproductive Disorders: No Gastrointestinal: No Musculoskeletal: No Endocrine: Yes Hypothyroidsim Cancer: No Psychosocial: No Integumentary: No Blood Disorders: No Family Medical History No Pertinent Family Hx Physical Exam Vital Signs Vital Signs - First Documented 02/04/22 07:40 Temp 36.0 Pulse 60 Resp 22 B/P (MAP) 193/94 (127) Pulse Ox 98 O2 Delivery Room Air Capillary Refill : Height, Weight, BMI Height: 5'1" Weight: 185lbs. oz. [id number]; 34.95 BMI Method:Stated General Appearance: WD/WN, Anxious Neck: Normal Inspection Respiratory: Lungs Clear, Normal Breath Sounds, No Accessory Muscle Use, No Respiratory Distress Cardiovascular: Regular Rate, Rhythm (60's), Normal Peripheral Pulses Gastrointestinal: Normal Bowel Sounds, Non Tender, Soft Extremity: Normal Capillary Refill, Normal Inspection, Normal Range of Motion, No Pedal Edema Neurologic/Psychiatric: Alert, Oriented x3, No Motor/Sensory Deficits, Other (Anxious) Skin: Normal Color, Warm/Dry Progress/Results/Core Measures Suspected Sepsis SIRS Temperature: Pulse: Respiratory Rate: Blood Pressure / Mean: Results/Orders Vital Signs/I&O 02/04/22 07:40 Temp 36.0 Pulse 60 Resp 22 B/P (MAP) 193/94 (127) Pulse Ox 98 O2 Delivery Room Air Capillary Refill : Progress Note : Time: 08:44 Progress Note Case discussed with Poison Control. Recommendations for discharge. Peak effect around noon. She is to do no heavy exertional work. Monitor her dizziness. Drinkl extra fluids. If she falls as a result of her dizziness she is to return to the ER and avoind sun/sweating with exertion. Patient stable at the moment. good BP. Will d/c to home. Departure Impression Primary Impression: Accidental overdose of angiotensin converting enzyme inhibitor (BREANNA-I) Disposition: 01 HOME, SELF-CARE Condition: Stable Departure-Patient Inst. Decision time for Depature: 08:45 Referrals: [facility] [place]) Primary Care Physician Patient Instructions: Accidental Overdose, Adult ED Add. Discharge Instructions: Continue to take your medications daily as prescribed. Drink extra fluids today. Monitor your dizziness, if you have a fall related to your dizziness, please come back to the ER for re-evaluation. Poison Control will call you this afternoon. Avoid heavy, exertional activity/ sunlight/heat today. Follow up with [facility] on Saturday for a refill of you BP medications. Copy Copies To 1: DENIS ZEE KATHRYN M MD Feb 04, 2022 07:51
[2022-02-04 08:58] VITALS: BP 135/69
== END 2022-02-04 08:58 | disposition home or self-care (01) ==
LOC: EDUNIT# 07:37 → ER 07:39
DX: T46.4X1A Poisoning by angiotensin-converting-enzyme inhibitors, accidental (unintentional), initial encounter (principal); Z28.310 Unvaccinated for COVID-19
CPT/HCPCS: 99285

== ENCOUNTER → 2023-01-16 | Outpatient (CLI) | payer BC ==
[~2023-01-16] MED LIST changes: +ALBU8.5H6 IH; -RT-ALBUINH IH
== END ==
LOC: PREOP 05:38
PROVIDERS: ATTEND Surgery
DX: Z01.818 Encounter for other preprocedural examination (principal)